=== PATIENT | female | born 1945 | race African-American/Black ===

== ENCOUNTER 2017-10-28 12:01 | Emergency (ER) | payer MEDICARE ==
[2017-10-28 13:05] LABS: #Eosinphils 0.1 thou/uL (0.0-0.7); #Lymphocytes 1.9 thou/uL (1.20-3.40); #Monocytes 0.3 thou/uL (0.11-0.59); #Neutrophils 3.8 thou/uL (1.40-6.50); %Basophils 0.3 % (0.0-1.0); %Eosinophils 1.6 % (0.0-10.0); %Lymphocytes 30.9 % (21.0-51.0); %Monocytes 5.5 % (0.0-10.0); %Neutrophils 61.6 % (42.0-75.0); Mean Corpuscular HGB CONC 34.5 g/dL (32.0-36.0); Mean Corpuscular Hemoglobin 31.3 pg (27.0-31.0); Mean Corpuscular Volume 90.8 fL (78.0-98.0); Mean Platelet Volume 6.4 fL (7.4-10.4); Platelet Count 260 thou/uL (130-400); RBC Distribution Width 13.5 % (11.5-14.5); Red Blood Cell (RBC) Count 3.83 mill/uL (4.20-5.40); White Blood Cell (WBC) Count 6.2 thou/uL (4.8-10.8)
--- NOTE | 2017-10-28 13:14 | RAD ---
PORTABLE CHEST: History: Shortness of breath. Comparison: 08-13-16 FINDINGS: Heart size is within normal limits. There are post op sternotomy changes with a pacemaker. The lungs are clear of infiltrative process. No signs of failure. IMPRESSION: No active intrathoracic disease. POS: [facility]
[2017-10-28 13:23] LABS: ALT (SGPT) 30 U/L (8-55); AST (SGOT) 44 U/L (5-34); Albumin 4.1 g/dL (3.4-4.8); Alkaline Phosphatase 84 U/L (40-150); Anion Gap 11 mmol/L (10-20); BUN (Urea Nitrogen) 9 mg/dL (9.8-20.1); Bilirubin, Total 1.1 mg/dL (0.2-1.2); CK (CPK) 603 U/L (29-168); Calc. Creatinine Clearance 0 mL/min (70-130); Calcium 9.3 mg/dL (7.8-10.44); Carbon Dioxide 25 mmol/L (23-31); Chloride 107 mmol/L (98-107); Estimated GFR-MDRD 61; Globulin 3.8 g/dL (2.4-3.5); Glucose 84 mg/dL (83-110); Protein, Total 7.9 g/dL (6.0-8.3); Sodium 139 mmol/L (136-145)
[2017-10-28 13:27] LABS: CKMB 1.4 ng/mL (0-6.6); Troponin I Less than 0.010 ng/mL (< 0.028)
[2017-10-28] MEDS ORDERED: Fentanyl 100 MCG/2 ML VIAL ONE (14:23)
[2017-10-28 14:48] LABS: Bilirubin Negative (Negative); Blood, Urine Moderate (Negative); Clarity CLEAR (Clear); Glucose, Urine (Dipstick) Negative (Negative); Leukocyte Negative (Negative); Nitrite Negative (Negative); Protein, Urine (Dipstick) Negative (Neg-Trace); Specific Gravity, Urine 1.015 (1.002-1.036); Urobilinogen 0.2 mg/dL (0.2-1.0)
[2017-10-28 14:53] LABS: Bacteria/HPF None Seen HPF (None Seen); Hyaline Casts/LPF 0-3 HYALINE CAST LPF (0-3 Hyaline); Pathc Cast-AUWi Flag 0.14 (0-2.49); Squamous Epithelial 0-3 HPF (0-3); WBC/HPF 0-3 HPF (0-3)
--- NOTE | 2017-10-28 15:51 | CT ---
CT ABDOMEN AND PELVIS WITHOUT CONTRAST: 10/28/17 HISTORY: Left flank pain. COMPARISON: CT abdomen and pelvis with contrast 2010. FINDINGS: The lung bases are clear. No pericardial effusion. No nephroureterolithiasis or hydroureteronephrosis. No secondary evidence of recently passed stone. Prior cholecystectomy. Noncontrast evaluation of the spleen. Pancreas is unremarkable. Small retroperitoneal periaortic lymph nodes. No dilated loops of large or small bowel. Moderate facet arthropathy or the lower lumbar spine. 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 IMPRESSION: 1. No nephroureterolithiasis or hydroureteronephrosis. No secondary evidence of recently passed stone. 2. Normal appendix. 3. No acute inflammatory process in the abdomen or pelvis. POS: [facility]
--- NOTE | 2017-10-29 13:42 | EKG ---
Test Reason : Blood Pressure : / mmHG Vent. Rate : 060 BPM Atrial Rate : 060 BPM P-R Int : 194 ms QRS Dur : 096 ms QT Int : 428 ms P-R-T Axes : 058 -11 -88 degrees QTc Int : 428 ms Atrial-paced rhythm Left ventricular hypertrophy with repolarization abnormality Cannot rule out Septal infarct , age undetermined Abnormal ECG Confirmed by DIGNA NELSON M.D. ([id number]), avid editor GENARO HOPKINS ([id number] on 10/29/2017 1:41:57 PM Referred By: Confirmed By:DIGNA NELSON M.D.
== END 2017-10-28 16:45 | disposition home or self-care (01) ==
LOC: ERS 12:01
DX: R07.89 Other chest pain (principal); R31.9 Hematuria, unspecified; E78.5 Hyperlipidemia, unspecified; I10 Essential (primary) hypertension; Z79.899 Other long term (current) drug therapy; Z79.82 Long term (current) use of aspirin
CPT/HCPCS: 36415; 71045; 74176; 80053; 81003; 81015; 82550; 82553; 83605; 83690; 84484; 85025; 93005; 94760; 96361; 96374; J3010

== ENCOUNTER 2018-10-27 11:20 | Emergency (ER) | payer MEDICARE, OTHER ==
--- NOTE | 2018-10-27 12:10 | RAD ---
LEFT SHOULDER 3 VIEWS: HISTORY: Shoulder pain after fall. FINDINGS: Some moderate arthritic changes of the AC joint. Glenohumeral joint shows minimal arthritic change. There is no fracture or dislocation. IMPRESSION: No evidence of fracture. POS: [facility]
[2018-10-27] MEDS ORDERED: Acetaminophen 325 MG TAB ONE (13:01)
[2018-10-27 13:28] LABS: #Eosinphils 0.1 thou/uL (0.0-0.7); #Lymphocytes 1.9 thou/uL (1.20-3.40); #Monocytes 0.3 thou/uL (0.11-0.59); #Neutrophils 2.6 thou/uL (1.40-6.50); %Basophils 0.6 % (0.0-1.0); %Eosinophils 2.4 % (0.0-10.0); %Lymphocytes 39.3 % (21.0-51.0); %Monocytes 5.6 % (0.0-10.0); %Neutrophils 52.1 % (42.0-75.0); Hemoglobin 12.6 g/dL (12.0-16.0); Mean Corpuscular HGB CONC 33.4 g/dL (32.0-36.0); Mean Corpuscular Hemoglobin 31.3 pg (27.0-31.0); Mean Corpuscular Volume 93.7 fL (78.0-98.0); Mean Platelet Volume 6.9 fL (7.4-10.4); Platelet Count 254 thou/uL (130-400); RBC Distribution Width 13.7 % (11.5-14.5); Red Blood Cell (RBC) Count 4.03 mill/uL (4.20-5.40); White Blood Cell (WBC) Count 4.9 thou/uL (4.8-10.8)
--- NOTE | 2018-10-27 13:33 | CT ---
CT HEAD NONCONTRAST: 10/27/18 HISTORY: Fall. Head injury. FINDINGS: There is no evidence of acute intracranial hemorrhage or infarct. Mild chronic ischemic small vessel disease. There is no mass effect or shift of midline structures. The visualized paranasal sinuses rem ain well aerated. IMPRESSION: No acute intracranial abnormalities are demonstrated. POS: [facility]
[2018-10-27 14:01] LABS: ALT (SGPT) 19 U/L (8-55); AST (SGOT) 28 U/L (5-34); Albumin 4.3 g/dL (3.4-4.8); Alkaline Phosphatase 75 U/L (40-150); Anion Gap 12 mmol/L (10-20); BUN (Urea Nitrogen) 12 mg/dL (9.8-20.1); Bilirubin, Total 0.6 mg/dL (0.2-1.2); Calc. Creatinine Clearance 0 mL/min (70-130); Calcium 9.3 mg/dL (7.8-10.44); Carbon Dioxide 25 mmol/L (23-31); Chloride 106 mmol/L (98-107); Estimated GFR-MDRD 60; Globulin 3.5 g/dL (2.4-3.5); Glucose 62 mg/dL (83-110); Protein, Total 7.8 g/dL (6.0-8.3); Sodium 139 mmol/L (136-145)
[2018-10-27] MEDS ORDERED: cloNIDine 0.1 MG TAB ONE (14:05)
--- NOTE | 2018-10-27 14:05 | RAD ---
LEFT KNEE 4 VIEWS: Date: 10/27/18 HISTORY: Left knee pain, fall. FINDINGS: There are postop changes of total knee arthroplasty in good position and alignment. No acute fracture or dislocation is seen. No perihardware lucency is identified to suggest loosening. IMPRESSION: No acute process. POS: [facility]
--- NOTE | 2018-10-27 14:06 | RAD ---
PORTABLE CHEST 1 VIEW: Date: 10/27/18 Time: 1351 hours HISTORY: Dizziness. FINDINGS: Comparison made with exam of 10/28/17. There are changes of median sternotomy. The heart size is normal. The aorta is tortuous. Left-sided p acemaker device remains in place. The lungs are well expanded without focal areas of consolidation, p neumothoraces, or pleural effusions. IMPRESSION: No acute process. POS: [facility]
== END 2018-10-27 16:04 | disposition home or self-care (01) ==
LOC: ERS 11:20
DX: M25.562 Pain in left knee (principal); M25.512 Pain in left shoulder; I10 Essential (primary) hypertension; R51 Headache; Z79.82 Long term (current) use of aspirin; Z79.899 Other long term (current) drug therapy; W18.09XA Striking against other object with subsequent fall, initial encounter
CPT/HCPCS: 36415; 70450; 71045; 80053; 84484; 85025; 93005